=== PATIENT | female | born 1930 | race Caucasian/White ===

== ENCOUNTER 2018-04-11 20:25 | Inpatient (IN) | payer MEDICARE, OTHER ==
[2018-04-11] MEDS ORDERED: DEXTROSE 50% 50 ML SYRINGE IV ×4 (22:30→23:30)
[2018-04-11] MEDS: ACCU-CHEK XX (23:09)
[2018-04-11] MEDS: INSULIN HUMAN REGULAR 100 UNIT in SOD CHLORIDE 0.9% 99 ML IV (23:09)
[2018-04-11] MEDS ORDERED: ACCU-CHEK XX (23:30)
[2018-04-11] MEDS ORDERED: NACL 0.9% 3 ML SYG IV (23:30)
[2018-04-11] MEDS ORDERED: INSULIN HUMAN REGULAR 100 UNIT in SOD CHLORIDE 0.9% 99 ML IV (23:30)
[2018-04-12] MEDS: ACCU-CHEK XX ×24 (00:20→23:00)
[2018-04-12] MEDS: VANCOMYCIN HCL 250 MG/5ML POSYG PO ×4 (01:29→17:52)
[2018-04-12] MEDS: ALBUTEROL HFA 8 GM INHALER INH ×6 (01:31→20:26)
[2018-04-12] MEDS: IPRATROPIUM (HFA) 12.9 GM INHALER INH ×6 (01:31→20:26)
[2018-04-12 02:03] LABS: POTASSIUM 3.7 mmol/L (3.5-5.1)
[2018-04-12 02:07] LABS: LACTIC ACID 1.3 mmol/L (0.5-2.0)
[2018-04-12] MEDS: DOXAZOSIN 4 MG TAB GTB ×2 (02:41→21:36)
[2018-04-12] MEDS: ACETAMINOPHEN 650MG/20.3ML CUP GTB ×2 (04:20→17:52)
[2018-04-12 04:51] LABS: ADD MAN DIFF? NO
[2018-04-12 04:59] LABS: WHITE BLOOD COUNT 10.8 10^3/ul (4.8-10.8)
[2018-04-12 04:59] LABS: ABNORMAL IP MESSAGE 1; BASOPHILS % 0.2 % (0.0-2.0); EOSINOPHILS # 0.5 10^3/ul (0.0-0.5); EOSINOPHILS % 4.4 % (0.0-7.0); HEMATOCRIT 19.2 % (37.0-47.0); LYMPHOCYTES # 1.7 10^3/ul (0.8-2.9); LYMPHOCYTES % 15.5 % (15.0-51.0); MEAN CORPUSCULAR HEMOGLOBIN 28.4 pg (29.0-33.0); MEAN CORPUSCULAR HGB CONC 32.3 g/dl (32.0-37.0); MEAN CORPUSCULAR VOLUME 88.1 fl (82.0-101.0); MEAN PLATELET VOLUME 10.2 fl (7.4-10.4); MONOCYTE # 1.1 10^3/ul (0.3-0.9); MONOCYTES % 10.2 % (0.0-11.0); NEUTROPHIL # 7.4 10^3/ul (1.6-7.5); NEUTROPHILS % 68.7 % (39.0-77.0); PLATELET COUNT 251 10^3/UL (140-415); RED BLOOD COUNT 2.18 10^6/ul (4.20-5.40)
[2018-04-12 05:08] LABS: AADO2 Arterial 76.8 mmHg (7.0-24.0); Allen Test ACCEPTAB; Arterial Base Excess -0.7 mmol/L (-3.0-3); Arterial Blood Gas Oxygen Sat 97.5 mmHG (95.0-100.0); Arterial COHb 0.7 % (0.0-3.0); Arterial Fraction of Oxyhgb 96.2 % (93.0-99.0); Arterial HCO3 22.2 mmol/L (22.0-26.0); Arterial MetHb 0.6 % (0.0-1.5); Arterial pCO2 29.1 mmhg (35-45); MODE VENT - AC; Site Left Radial
[2018-04-12 05:30] LABS: ANION GAP 13 (5-13); BLOOD UREA NITROGEN 37 mg/dl (7-20); CARBON DIOXIDE 25 mmol/L (21-31); CHLORIDE 97 mmol/L (97-110); GLUCOSE 124 mg/dl (70-220); MAGNESIUM 2.1 mg/dl (1.7-2.5); PHOSPHORUS 2.8 mg/dl (2.5-4.9); POTASSIUM 3.6 mmol/L (3.5-5.1); SODIUM 135 mmol/L (135-144)
[2018-04-12 05:35] LABS: HEMOGLOBIN 6.2 g/dl (12.0-16.0); POSITIVE DIFF @See below
[2018-04-12] MEDS: PANTOPRAZOLE 40 MG INJ IV (06:33)
[2018-04-12 07:26] LABS: ANISOCYTOSIS 1+ (0-0); BAND NEUTROPHILS #M 0.1 10^3/ul (0.0-0.6); BAND NEUTROPHILS % (M) 1 % (0-4); BASOPHIL #M 0.1 10^3/ul (0.0-0.0); BASOPHILS % (M) 1 % (0-2); EOSINOPHILS % (M) 6 % (0-7); GIANT THROMBO% (M) 1 % (0-0); LYMPHOCYTES #M 1.5 10^3/ul (0.8-2.9); LYMPHOCYTES % (M) 14 % (15-51); MONOCYTE #M 0.7 10^3/ul (0.3-0.9); MONOCYTES % (M) 7 % (0-11); PLATELET ESTIMATE NORMAL; POIKILOCYTOSIS 1+ (0-0); POLYCHROMASIA 1+ (0-0); SEG NEUT #M 7.7 10^3/ul (1.6-7.5); SEGMENTED NEUTROPHILS (M) % 71 % (39-77); SMUDGE%M 10 % (0-0); TARGET CELLS 1+ (0-0)
[2018-04-12 08:39] LABS: IMMEDIATE SPIN CROSSMATCH 1 2
[2018-04-12] MEDS: METOPROLOL 25 MG TAB GTB (08:51)
[2018-04-12] MEDS: AMLODIPINE 5 MG TAB GTB (08:51)
[2018-04-12] MEDS ORDERED: METOPROLOL (XL) 25 MG TAB PO (09:00)
[2018-04-12 13:04] LABS: ADD MAN DIFF? NO
[2018-04-12 13:06] LABS: BASOPHILS % 0.3 % (0.0-2.0); EOSINOPHILS # 0.6 10^3/ul (0.0-0.5); EOSINOPHILS % 5.1 % (0.0-7.0); HEMATOCRIT 26.9 % (37.0-47.0); HEMOGLOBIN 8.9 g/dl (12.0-16.0); LYMPHOCYTES # 1.5 10^3/ul (0.8-2.9); LYMPHOCYTES % 12.9 % (15.0-51.0); MEAN CORPUSCULAR HEMOGLOBIN 29.2 pg (29.0-33.0); MEAN CORPUSCULAR HGB CONC 33.1 g/dl (32.0-37.0); MEAN CORPUSCULAR VOLUME 88.2 fl (82.0-101.0); MEAN PLATELET VOLUME 10.1 fl (7.4-10.4); MONOCYTES % 8.5 % (0.0-11.0); NEUTROPHIL # 8.4 10^3/ul (1.6-7.5); NEUTROPHILS % 71.9 % (39.0-77.0); PLATELET COUNT 254 10^3/UL (140-415); RED BLOOD COUNT 3.05 10^6/ul (4.20-5.40)
[2018-04-12 13:06] LABS: WHITE BLOOD COUNT 11.7 10^3/ul (4.8-10.8)
[2018-04-12] MEDS: AMLODIPINE 5 MG TAB PO (15:58)
[2018-04-12 16:31] LABS: INR 1.15; PROTIME 14.9 Sec (11.9-14.9); PT RATIO 1.2
[2018-04-12 16:32] LABS: ANION GAP 10 (5-13); BLOOD UREA NITROGEN 42 mg/dl (7-20); CARBON DIOXIDE 25 mmol/L (21-31); CHLORIDE 96 mmol/L (97-110); CREATININE 3.24 mg/dl (0.44-1.00); GLUCOSE 120 mg/dl (70-220); PARTIAL THROMBOPLASTIN TIME 48.7 Sec (23.0-35.0); POTASSIUM 3.5 mmol/L (3.5-5.1); SODIUM 131 mmol/L (135-144)
[2018-04-12 18:27] LABS: AADO2 Arterial 76.8 mmHg (7.0-24.0); Allen Test ACCEPTAB; Arterial Base Excess -0.7 mmol/L (-3.0-3); Arterial Blood Gas Oxygen Sat 97.5 mmHG (95.0-100.0); Arterial COHb 0.7 % (0.0-3.0); Arterial Fraction of Oxyhgb 96.2 % (93.0-99.0); Arterial HCO3 22.2 mmol/L (22.0-26.0); Arterial MetHb 0.6 % (0.0-1.5); Arterial pCO2 29.1 mmhg (35-45); MODE VENT - AC; Site Left Radial
[2018-04-12 18:29] LABS: ADD MAN DIFF? NO
[2018-04-12 18:30] LABS: BASOPHILS % 0.2 % (0.0-2.0); EOSINOPHILS # 0.5 10^3/ul (0.0-0.5); EOSINOPHILS % 4.8 % (0.0-7.0); HEMATOCRIT 25.7 % (37.0-47.0); HEMOGLOBIN 8.6 g/dl (12.0-16.0); LYMPHOCYTES # 1.5 10^3/ul (0.8-2.9); LYMPHOCYTES % 13.1 % (15.0-51.0); MEAN CORPUSCULAR HGB CONC 33.5 g/dl (32.0-37.0); MEAN CORPUSCULAR VOLUME 86.5 fl (82.0-101.0); MEAN PLATELET VOLUME 10.4 fl (7.4-10.4); MONOCYTES % 9.2 % (0.0-11.0); NEUTROPHILS % 71.4 % (39.0-77.0); PLATELET COUNT 262 10^3/UL (140-415); RED BLOOD COUNT 2.97 10^6/ul (4.20-5.40); RED CELL DISTRIBUTION WIDTH 16.7 % (11.5-14.5)
[2018-04-12 18:30] LABS: WHITE BLOOD COUNT 11.2 10^3/ul (4.8-10.8)
[2018-04-13] MEDS: IPRATROPIUM (HFA) 12.9 GM INHALER INH ×6 (01:00→20:22)
[2018-04-13] MEDS: ALBUTEROL HFA 8 GM INHALER INH ×6 (01:00→20:22)
[2018-04-13] MEDS: ACCU-CHEK XX ×13 (01:00→21:33)
[2018-04-13] MEDS: VANCOMYCIN HCL 250 MG/5ML POSYG PO ×4 (01:03→17:26)
[2018-04-13 05:05] LABS: ADD MAN DIFF? NO
[2018-04-13 05:07] LABS: WHITE BLOOD COUNT 11.3 10^3/ul (4.8-10.8)
[2018-04-13 05:07] LABS: BASOPHILS % 0.4 % (0.0-2.0); EOSINOPHILS # 0.6 10^3/ul (0.0-0.5); EOSINOPHILS % 5.4 % (0.0-7.0); HEMATOCRIT 26.9 % (37.0-47.0); HEMOGLOBIN 8.7 g/dl (12.0-16.0); LYMPHOCYTES # 2.1 10^3/ul (0.8-2.9); LYMPHOCYTES % 18.4 % (15.0-51.0); MEAN CORPUSCULAR HEMOGLOBIN 28.2 pg (29.0-33.0); MEAN CORPUSCULAR HGB CONC 32.3 g/dl (32.0-37.0); MEAN CORPUSCULAR VOLUME 87.3 fl (82.0-101.0); MEAN PLATELET VOLUME 10.3 fl (7.4-10.4); MONOCYTE # 1.1 10^3/ul (0.3-0.9); MONOCYTES % 9.6 % (0.0-11.0); NEUTROPHIL # 7.3 10^3/ul (1.6-7.5); NEUTROPHILS % 64.7 % (39.0-77.0); NUCLEATED RED BLOOD CELLS% 0.2 /100WBC (0.0-0.0); PLATELET COUNT 303 10^3/UL (140-415); RED BLOOD COUNT 3.08 10^6/ul (4.20-5.40)
[2018-04-13] MEDS: PANTOPRAZOLE 40 MG INJ IV (05:37)
[2018-04-13 05:45] LABS: ANION GAP 11 (5-13); BLOOD UREA NITROGEN 44 mg/dl (7-20); CALCIUM 9.2 mg/dl (8.4-10.2); CARBON DIOXIDE 26 mmol/L (21-31); CHLORIDE 97 mmol/L (97-110); CREATININE 3.51 mg/dl (0.44-1.00); GLUCOSE 119 mg/dl (70-220); MAGNESIUM 2.1 mg/dl (1.7-2.5); PHOSPHORUS 2.6 mg/dl (2.5-4.9); POTASSIUM 3.7 mmol/L (3.5-5.1); SODIUM 134 mmol/L (135-144)
[2018-04-13] MEDS: METOPROLOL 25 MG TAB GTB ×2 (08:28→21:22)
[2018-04-13] MEDS: AMLODIPINE 10 MG TAB GTB (08:29)
[2018-04-13] MEDS: ACETAMINOPHEN 650MG/20.3ML CUP GTB ×2 (08:44→21:23)
[2018-04-13 08:49] LABS: HEPATITIS B SURFACE ANTIGEN NEGATIVE (NEGATIVE)
[2018-04-13 09:07] LABS: HEPATITIS B SURFACE ANTIBODY NEGATIVE (NEGATIVE)
[2018-04-13] MEDS: RIFAXIMIN 550 MG TAB PO ×2 (09:38→21:23)
[2018-04-13] MEDS: TOBRAMYCIN 0.3% 5 ML OPH BOTH EYES ×4 (09:38→21:24)
[2018-04-13] MEDS: INSULIN ASPART [NOVOLOG] 3 ML PEN SC ×2 (11:11→17:28)
[2018-04-13] MEDS: HEPARIN 1000 UNITS/ML 10 ML INJ CATHETER (11:42)
[2018-04-13] MEDS: NPH, HUMAN INSULIN ISOPHANE 3ML VIAL SC ×2 (14:04→21:33)
[2018-04-13] MEDS: EPOETIN 10000 UNITS/1 ML INJ (ESRD) SC (17:27)
[2018-04-13] MEDS: DOXAZOSIN 4 MG TAB GTB (21:23)
[2018-04-14] MEDS: VANCOMYCIN HCL 250 MG/5ML POSYG PO ×4 (00:18→18:00)
[2018-04-14] MEDS: IPRATROPIUM (HFA) 12.9 GM INHALER INH ×6 (01:07→21:15)
[2018-04-14] MEDS: ALBUTEROL HFA 8 GM INHALER INH ×6 (01:07→21:15)
[2018-04-14] MEDS: ACCU-CHEK XX ×6 (01:26→21:50)
[2018-04-14 05:14] LABS: ADD MAN DIFF? NO
[2018-04-14 05:16] LABS: WHITE BLOOD COUNT 9.9 10^3/ul (4.8-10.8)
[2018-04-14 05:16] LABS: BASOPHILS % 0.3 % (0.0-2.0); EOSINOPHILS # 0.5 10^3/ul (0.0-0.5); EOSINOPHILS % 4.7 % (0.0-7.0); HEMATOCRIT 25.5 % (37.0-47.0); HEMOGLOBIN 8.4 g/dl (12.0-16.0); LYMPHOCYTES # 1.7 10^3/ul (0.8-2.9); LYMPHOCYTES % 17.3 % (15.0-51.0); MEAN CORPUSCULAR HEMOGLOBIN 29.1 pg (29.0-33.0); MEAN CORPUSCULAR HGB CONC 32.9 g/dl (32.0-37.0); MEAN CORPUSCULAR VOLUME 88.2 fl (82.0-101.0); MEAN PLATELET VOLUME 9.9 fl (7.4-10.4); MONOCYTE # 1.2 10^3/ul (0.3-0.9); MONOCYTES % 12.5 % (0.0-11.0); NEUTROPHIL # 6.3 10^3/ul (1.6-7.5); NEUTROPHILS % 63.5 % (39.0-77.0); PLATELET COUNT 298 10^3/UL (140-415); RED BLOOD COUNT 2.89 10^6/ul (4.20-5.40); RED CELL DISTRIBUTION WIDTH 17.4 % (11.5-14.5)
[2018-04-14 05:50] LABS: ALANINE AMINOTRANSFERASE 51 IU/L (13-69); ALBUMIN 3.2 g/dl (3.3-4.9); ALBUMIN/GLOBULIN RATIO 1.45; ALKALINE PHOSPHATASE 74 IU/L (42-121); ANION GAP 7 (5-13); ASPARTATE AMINO TRANSFERASE 80 IU/L (15-46); BILIRUBIN,INDIRECT 0.7 mg/dl (0-1.1); BILIRUBIN,TOTAL 0.7 mg/dl (0.2-1.3); BLOOD UREA NITROGEN 29 mg/dl (7-20); CALCIUM 8.9 mg/dl (8.4-10.2); CARBON DIOXIDE 29 mmol/L (21-31); CHLORIDE 101 mmol/L (97-110); CREATININE 2.53 mg/dl (0.44-1.00); GLUCOSE 150 mg/dl (70-220); POTASSIUM 3.5 mmol/L (3.5-5.1); SODIUM 137 mmol/L (135-144); TOTAL PROTEIN 5.4 g/dl (6.1-8.1)
[2018-04-14] MEDS: PANTOPRAZOLE 40 MG INJ IV (06:18)
[2018-04-14] MEDS: NPH, HUMAN INSULIN ISOPHANE 3ML VIAL SC ×3 (06:23→21:48)
[2018-04-14] MEDS: TOBRAMYCIN 0.3% 5 ML OPH BOTH EYES ×4 (08:41→21:11)
[2018-04-14] MEDS: INSULIN ASPART [NOVOLOG] 3 ML PEN SC ×3 (08:41→18:04)
[2018-04-14] MEDS: METOPROLOL 25 MG TAB GTB ×2 (08:42→21:10)
[2018-04-14] MEDS: AMLODIPINE 10 MG TAB GTB (08:42)
[2018-04-14] MEDS: RIFAXIMIN 550 MG TAB PO ×2 (08:42→21:10)
[2018-04-14] MEDS: SODIUM PHOSPHATE 15 MMOL in SOD CHLORIDE 0.9% 250 ML IVPB (09:34)
[2018-04-14 10:29] LABS: ADD UMIC YES; UR ASCORBIC ACID NEGATIVE (NEGATIVE); UR BACTERIA FEW /HPF (NONE SEEN); UR BILIRUBIN (Dip) NEGATIVE (NEGATIVE); UR BLOOD (Dip) 3+ mg/dL (NEGATIVE); UR BUDDING YEAST MANY /HPF (NONE SEEN); UR CLARITY TURBID (CLEAR); UR COLOR YELLOW (YELLOW); UR GLUCOSE (Dip) NEGATIVE (NEGATIVE); UR HYALINE CAST FEW /HPF (NONE SEEN); UR KETONES (Dip) NEGATIVE (NEGATIVE); UR LEUKOCYTE ESTERASE (Dip) 2+ Leu/ul (NEGATIVE); UR MUCUS FEW /HPF (NONE SEEN); UR NITRITE (Dip) NEGATIVE (NEGATIVE); UR RBC > 182 /HPF (0-5); UR SPECIFIC GRAVITY (Dip) 1.026 (1.003-1.030); UR SQUAMOUS EPITHELIAL CELL FEW /HPF (FEW); UR TOTAL PROTEIN (Dip) 2+ mg/dl (NEGATIVE); UR UROBILINOGEN (Dip) NEGATIVE (NEGATIVE); UR WBC > 182 /HPF (0-5)
[2018-04-14 11:28] LABS: CREATININE,URINE RANDOM 297.18 mg/dl (20-320); PROTEIN/CREAT RATIO 0.59 RATIO
[2018-04-14] MEDS ORDERED: FLUCONAZOLE (10 MG/ML PO SYG) PEG (16:30)
[2018-04-14] MEDS: FLUCONAZOLE 200 MG TAB PEG (16:42)
[2018-04-14] MEDS: HEPARIN 1000 UNITS/ML 10 ML INJ CATHETER (17:58)
[2018-04-14] MEDS: DOXAZOSIN 4 MG TAB GTB (21:10)
[2018-04-14] MEDS: ACETYLCYSTEINE 600 MG CAP PEG (21:11)
[2018-04-15] MEDS: ACCU-CHEK XX ×6 (01:16→20:53)
[2018-04-15] MEDS: VANCOMYCIN HCL 250 MG/5ML POSYG PO ×5 (01:17→18:00)
[2018-04-15] MEDS: ACETAMINOPHEN 650MG/20.3ML CUP GTB (01:18)
[2018-04-15] MEDS: IPRATROPIUM (HFA) 12.9 GM INHALER INH ×6 (02:10→21:36)
[2018-04-15] MEDS: ALBUTEROL HFA 8 GM INHALER INH ×6 (02:10→21:36)
[2018-04-15 05:20] LABS: ADD MAN DIFF? NO; BASOPHIL # 0.1 10^3/ul (0.0-0.1); BASOPHILS % 0.5 % (0.0-2.0); EOSINOPHILS # 0.6 10^3/ul (0.0-0.5); EOSINOPHILS % 6.2 % (0.0-7.0); HEMATOCRIT 25.1 % (37.0-47.0); HEMOGLOBIN 8.2 g/dl (12.0-16.0); LYMPHOCYTES # 1.9 10^3/ul (0.8-2.9); LYMPHOCYTES % 20.4 % (15.0-51.0); MEAN CORPUSCULAR HEMOGLOBIN 28.9 pg (29.0-33.0); MEAN CORPUSCULAR HGB CONC 32.7 g/dl (32.0-37.0); MEAN CORPUSCULAR VOLUME 88.4 fl (82.0-101.0); MEAN PLATELET VOLUME 9.7 fl (7.4-10.4); MONOCYTE # 1.1 10^3/ul (0.3-0.9); MONOCYTES % 12.2 % (0.0-11.0); NEUTROPHIL # 5.4 10^3/ul (1.6-7.5); NEUTROPHILS % 59.3 % (39.0-77.0); NUCLEATED RED BLOOD CELLS% 0.2 /100WBC (0.0-0.0); PLATELET COUNT 308 10^3/UL (140-415); RED BLOOD COUNT 2.84 10^6/ul (4.20-5.40); RED CELL DISTRIBUTION WIDTH 18.1 % (11.5-14.5)
[2018-04-15 05:20] LABS: WHITE BLOOD COUNT 9.2 10^3/ul (4.8-10.8)
[2018-04-15] MEDS: PANTOPRAZOLE 40 MG INJ IV (05:49)
[2018-04-15] MEDS: NPH, HUMAN INSULIN ISOPHANE 3ML VIAL SC ×3 (05:53→23:14)
[2018-04-15 05:59] LABS: ANION GAP 8 (5-13); BLOOD UREA NITROGEN 17 mg/dl (7-20); CALCIUM 8.6 mg/dl (8.4-10.2); CARBON DIOXIDE 30 mmol/L (21-31); CHLORIDE 100 mmol/L (97-110); CREATININE 1.95 mg/dl (0.44-1.00); GLUCOSE 181 mg/dl (70-220); PHOSPHORUS 1.9 mg/dl (2.5-4.9); POTASSIUM 3.3 mmol/L (3.5-5.1); SODIUM 138 mmol/L (135-144)
[2018-04-15 07:29] LABS: AADO2 Arterial 87.9 mmHg (7.0-24.0); Allen Test ACCEPTAB; Arterial Base Excess 0.8 mmol/L (-3.0-3); Arterial Blood Gas Oxygen Sat 96.8 mmHG (95.0-100.0); Arterial COHb 0.3 % (0.0-3.0); Arterial Fraction of Oxyhgb 96.4 % (93.0-99.0); Arterial HCO3 24.4 mmol/L (22.0-26.0); Arterial MetHb 0.1 % (0.0-1.5); Arterial Total Hemglobin 9.8 g/dl (12.0-18.0); Arterial pCO2 35.3 mmhg (35-45); MODE VENT - AC; Site Right Radial
[2018-04-15] MEDS: FLUCONAZOLE 200 MG TAB PEG (08:42)
[2018-04-15] MEDS: TOBRAMYCIN 0.3% 5 ML OPH BOTH EYES ×4 (08:42→20:51)
[2018-04-15] MEDS: METOPROLOL 25 MG TAB GTB ×2 (08:43→20:54)
[2018-04-15] MEDS: RIFAXIMIN 550 MG TAB PO ×2 (08:43→20:53)
[2018-04-15] MEDS: ACETYLCYSTEINE 600 MG CAP PEG ×2 (08:44→20:52)
[2018-04-15] MEDS: CHOLESTYRAMINE 4 GM PACKET PO ×2 (08:44→20:51)
[2018-04-15] MEDS: AMLODIPINE 10 MG TAB GTB (08:44)
[2018-04-15] MEDS: INSULIN ASPART [NOVOLOG] 3 ML PEN SC ×3 (08:45→17:18)
[2018-04-15] MEDS: POTASSIUM PHOSPHATE 20 MEQ in SOD CHLORIDE 0.9% 250 ML IVPB (11:00)
[2018-04-15] MEDS ORDERED: ALBUMIN HUMAN 25% 100 ML IV (16:00)
[2018-04-15] MEDS: EPOETIN 10000 UNITS/1 ML INJ (ESRD) SC (17:17)
[2018-04-15] MEDS: DOXAZOSIN 4 MG TAB GTB (20:53)
[2018-04-15] MEDS: HEPARIN 1000 UNITS/ML 10 ML INJ CATHETER (20:55)
[2018-04-16] MEDS: VANCOMYCIN HCL 250 MG/5ML POSYG PO ×5 (00:29→23:49)
[2018-04-16] MEDS: ACCU-CHEK XX ×2 (01:19→05:33)
[2018-04-16] MEDS: IPRATROPIUM (HFA) 12.9 GM INHALER INH ×6 (01:56→21:32)
[2018-04-16] MEDS: ALBUTEROL HFA 8 GM INHALER INH ×6 (01:56→21:32)
[2018-04-16] MEDS: PANTOPRAZOLE 40 MG INJ IV (05:33)
[2018-04-16] MEDS: NPH, HUMAN INSULIN ISOPHANE 3ML VIAL SC ×3 (05:33→22:04)
[2018-04-16 05:48] LABS: ADD MAN DIFF? NO
[2018-04-16 05:58] LABS: BASOPHIL # 0.1 10^3/ul (0.0-0.1); BASOPHILS % 0.5 % (0.0-2.0); EOSINOPHILS # 0.9 10^3/ul (0.0-0.5); EOSINOPHILS % 8.4 % (0.0-7.0); HEMATOCRIT 28.2 % (37.0-47.0); HEMOGLOBIN 8.8 g/dl (12.0-16.0); LYMPHOCYTES # 2.5 10^3/ul (0.8-2.9); LYMPHOCYTES % 22.1 % (15.0-51.0); MEAN CORPUSCULAR HGB CONC 31.2 g/dl (32.0-37.0); MEAN CORPUSCULAR VOLUME 89.8 fl (82.0-101.0); MEAN PLATELET VOLUME 9.8 fl (7.4-10.4); MONOCYTE # 1.4 10^3/ul (0.3-0.9); MONOCYTES % 12.2 % (0.0-11.0); NEUTROPHIL # 6.1 10^3/ul (1.6-7.5); NUCLEATED RED BLOOD CELLS% 0.2 /100WBC (0.0-0.0); PLATELET COUNT 309 10^3/UL (140-415); RED BLOOD COUNT 3.14 10^6/ul (4.20-5.40); RED CELL DISTRIBUTION WIDTH 18.4 % (11.5-14.5)
[2018-04-16 05:58] LABS: WHITE BLOOD COUNT 11.1 10^3/ul (4.8-10.8)
[2018-04-16 06:20] LABS: ALANINE AMINOTRANSFERASE 44 IU/L (13-69); ALBUMIN 3.6 g/dl (3.3-4.9); ALBUMIN/GLOBULIN RATIO 1.28; ALKALINE PHOSPHATASE 82 IU/L (42-121); ANION GAP 11 (5-13); ASPARTATE AMINO TRANSFERASE 58 IU/L (15-46); BILIRUBIN,INDIRECT 0.5 mg/dl (0-1.1); BILIRUBIN,TOTAL 0.5 mg/dl (0.2-1.3); BLOOD UREA NITROGEN 13 mg/dl (7-20); CALCIUM 9.1 mg/dl (8.4-10.2); CARBON DIOXIDE 29 mmol/L (21-31); CHLORIDE 100 mmol/L (97-110); CREATININE 1.83 mg/dl (0.44-1.00); GLUCOSE 146 mg/dl (70-220); POTASSIUM 3.7 mmol/L (3.5-5.1); SODIUM 140 mmol/L (135-144); TOTAL PROTEIN 6.4 g/dl (6.1-8.1)
[2018-04-16] MEDS: INSULIN ASPART [NOVOLOG] 3 ML PEN SC ×7 (07:35→23:53)
[2018-04-16] MEDS: ACETYLCYSTEINE 600 MG CAP PEG ×2 (10:43→21:47)
[2018-04-16] MEDS: RIFAXIMIN 550 MG TAB PO ×2 (10:44→21:47)
[2018-04-16] MEDS: METOPROLOL 25 MG TAB GTB ×2 (10:44→21:48)
[2018-04-16] MEDS: AMLODIPINE 10 MG TAB GTB (10:44)
[2018-04-16] MEDS: FLUCONAZOLE 200 MG TAB PEG (10:44)
[2018-04-16] MEDS: POTASSIUM CHLORIDE 50 ML IVPB (10:45)
[2018-04-16] MEDS: TOBRAMYCIN 0.3% 5 ML OPH BOTH EYES ×4 (10:45→21:48)
[2018-04-16 12:42] LABS: ADD UMIC YES; UR ASCORBIC ACID NEGATIVE (NEGATIVE); UR BACTERIA FEW /HPF (NONE SEEN); UR BILIRUBIN (Dip) 1+ mg/dL (NEGATIVE); UR BLOOD (Dip) 3+ mg/dL (NEGATIVE); UR BUDDING YEAST MANY /HPF (NONE SEEN); UR CLARITY TURBID (CLEAR); UR COLOR AMBER (YELLOW); UR GLUCOSE (Dip) NEGATIVE (NEGATIVE); UR HYALINE CAST FEW /HPF (NONE SEEN); UR KETONES (Dip) NEGATIVE (NEGATIVE); UR LEUKOCYTE ESTERASE (Dip) 3+ Leu/ul (NEGATIVE); UR MUCUS FEW /HPF (NONE SEEN); UR NITRITE (Dip) NEGATIVE (NEGATIVE); UR RBC > 182 /HPF (0-5); UR SPECIFIC GRAVITY (Dip) 1.024 (1.003-1.030); UR SQUAMOUS EPITHELIAL CELL FEW /HPF (FEW); UR TOTAL PROTEIN (Dip) 3+ mg/dl (NEGATIVE); UR UROBILINOGEN (Dip) NEGATIVE (NEGATIVE); UR WBC > 182 /HPF (0-5)
[2018-04-16] MEDS: CHOLESTYRAMINE 4 GM PACKET PO ×2 (12:54→23:44)
[2018-04-16] MEDS: BUMETANIDE 12 MG in DEXTROSE 5% 72 ML IV (12:54)
[2018-04-16] MEDS: CASPOFUNGIN 50 MG in SOD CHLORIDE 0.9% 250 ML IVPB (16:58)
[2018-04-16 17:19] LABS: HEPATITIS C VIRAL ANTIBODY NEGATIVE (NEGATIVE)
[2018-04-16] MEDS: DOXAZOSIN 4 MG TAB GTB (21:47)
[2018-04-17] MEDS: ACETAMINOPHEN 650MG/20.3ML CUP GTB ×2 (01:09→21:45)
[2018-04-17] MEDS: IPRATROPIUM (HFA) 12.9 GM INHALER INH ×6 (01:16→20:40)
[2018-04-17] MEDS: ALBUTEROL HFA 8 GM INHALER INH ×6 (01:17→20:41)
[2018-04-17 05:01] LABS: ADD MAN DIFF? NO
[2018-04-17 05:12] LABS: WHITE BLOOD COUNT 11.9 10^3/ul (4.8-10.8)
[2018-04-17 05:12] LABS: BASOPHIL # 0.1 10^3/ul (0.0-0.1); BASOPHILS % 0.4 % (0.0-2.0); EOSINOPHILS # 1.3 10^3/ul (0.0-0.5); EOSINOPHILS % 10.5 % (0.0-7.0); HEMOGLOBIN 8.4 g/dl (12.0-16.0); LYMPHOCYTES # 2.4 10^3/ul (0.8-2.9); LYMPHOCYTES % 20.3 % (15.0-51.0); MEAN CORPUSCULAR HEMOGLOBIN 28.2 pg (29.0-33.0); MEAN CORPUSCULAR HGB CONC 31.1 g/dl (32.0-37.0); MEAN CORPUSCULAR VOLUME 90.6 fl (82.0-101.0); MEAN PLATELET VOLUME 9.3 fl (7.4-10.4); MONOCYTE # 1.1 10^3/ul (0.3-0.9); MONOCYTES % 9.5 % (0.0-11.0); NEUTROPHIL # 6.9 10^3/ul (1.6-7.5); NEUTROPHILS % 57.7 % (39.0-77.0); NUCLEATED RED BLOOD CELLS% 0.3 /100WBC (0.0-0.0); PLATELET COUNT 368 10^3/UL (140-415); RED BLOOD COUNT 2.98 10^6/ul (4.20-5.40); RED CELL DISTRIBUTION WIDTH 18.4 % (11.5-14.5)
[2018-04-17 05:27] LABS: ANION GAP 11 (5-13); BLOOD UREA NITROGEN 21 mg/dl (7-20); CALCIUM 9.4 mg/dl (8.4-10.2); CARBON DIOXIDE 25 mmol/L (21-31); CHLORIDE 102 mmol/L (97-110); GLUCOSE 144 mg/dl (70-220); PHOSPHORUS 2.1 mg/dl (2.5-4.9); POTASSIUM 3.3 mmol/L (3.5-5.1); SODIUM 138 mmol/L (135-144)
[2018-04-17] MEDS: PANTOPRAZOLE 40 MG INJ IV (05:54)
[2018-04-17] MEDS: VANCOMYCIN HCL 250 MG/5ML POSYG PO ×3 (05:54→17:06)
[2018-04-17] MEDS: NPH, HUMAN INSULIN ISOPHANE 3ML VIAL SC ×3 (06:11→22:06)
[2018-04-17] MEDS: INSULIN ASPART [NOVOLOG] 3 ML PEN SC ×6 (06:12→17:07)
[2018-04-17] MEDS: TOBRAMYCIN 0.3% 5 ML OPH BOTH EYES ×4 (13:00→21:46)
[2018-04-17] MEDS: HEPARIN 1000 UNITS/ML 10 ML INJ CATHETER (13:50)
[2018-04-17] MEDS: POTASSIUM PHOSPHATE 30 MM in SOD CHLORIDE 0.9% 250 ML IVPB (14:09)
[2018-04-17] MEDS: AMLODIPINE 10 MG TAB GTB (14:09)
[2018-04-17] MEDS: ACETYLCYSTEINE 600 MG CAP PEG ×2 (14:11→21:45)
[2018-04-17] MEDS: METOPROLOL 25 MG TAB GTB ×2 (14:11→21:46)
[2018-04-17] MEDS: RIFAXIMIN 550 MG TAB PO ×2 (14:12→21:45)
[2018-04-17] MEDS: CASPOFUNGIN 50 MG in SOD CHLORIDE 0.9% 250 ML IVPB (17:04)
[2018-04-17] MEDS: CHOLESTYRAMINE 4 GM PACKET PO (17:04)
[2018-04-17] MEDS: EPOETIN 10000 UNITS/1 ML INJ (ESRD) SC (17:06)
[2018-04-17] MEDS: DOXAZOSIN 4 MG TAB GTB (21:46)
[2018-04-18] MEDS: VANCOMYCIN HCL 250 MG/5ML POSYG PO ×5 (00:14→23:43)
[2018-04-18] MEDS: CHOLESTYRAMINE 4 GM PACKET PO ×2 (00:14→12:47)
[2018-04-18] MEDS: INSULIN ASPART [NOVOLOG] 3 ML PEN SC ×10 (00:20→23:50)
[2018-04-18] MEDS: IPRATROPIUM (HFA) 12.9 GM INHALER INH ×6 (01:16→21:16)
[2018-04-18] MEDS: ALBUTEROL HFA 8 GM INHALER INH ×6 (01:16→21:16)
[2018-04-18 04:53] LABS: ADD MAN DIFF? NO
[2018-04-18 04:55] LABS: BASOPHIL # 0.1 10^3/ul (0.0-0.1); BASOPHILS % 0.4 % (0.0-2.0); EOSINOPHILS # 1.4 10^3/ul (0.0-0.5); EOSINOPHILS % 12.2 % (0.0-7.0); HEMATOCRIT 27.5 % (37.0-47.0); HEMOGLOBIN 8.5 g/dl (12.0-16.0); LYMPHOCYTES # 2.2 10^3/ul (0.8-2.9); LYMPHOCYTES % 18.7 % (15.0-51.0); MEAN CORPUSCULAR HGB CONC 30.9 g/dl (32.0-37.0); MEAN CORPUSCULAR VOLUME 90.5 fl (82.0-101.0); MEAN PLATELET VOLUME 9.5 fl (7.4-10.4); MONOCYTE # 1.3 10^3/ul (0.3-0.9); NEUTROPHIL # 6.5 10^3/ul (1.6-7.5); NEUTROPHILS % 55.6 % (39.0-77.0); NUCLEATED RED BLOOD CELLS% 0.3 /100WBC (0.0-0.0); PLATELET COUNT 309 10^3/UL (140-415); RED BLOOD COUNT 3.04 10^6/ul (4.20-5.40); RED CELL DISTRIBUTION WIDTH 18.4 % (11.5-14.5)
[2018-04-18 04:55] LABS: WHITE BLOOD COUNT 11.7 10^3/ul (4.8-10.8)
[2018-04-18 05:32] LABS: ANION GAP 13 (5-13); BLOOD UREA NITROGEN 15 mg/dl (7-20); CALCIUM 9.2 mg/dl (8.4-10.2); CARBON DIOXIDE 25 mmol/L (21-31); CHLORIDE 101 mmol/L (97-110); CREATININE 2.11 mg/dl (0.44-1.00); GLUCOSE 85 mg/dl (70-220); MAGNESIUM 1.9 mg/dl (1.7-2.5); PHOSPHORUS 3.6 mg/dl (2.5-4.9); POTASSIUM 3.6 mmol/L (3.5-5.1); SODIUM 139 mmol/L (135-144)
[2018-04-18] MEDS: PANTOPRAZOLE 40 MG INJ IV (05:53)
[2018-04-18] MEDS: NPH, HUMAN INSULIN ISOPHANE 3ML VIAL SC ×3 (05:56→21:29)
[2018-04-18] MEDS: AMLODIPINE 10 MG TAB GTB (09:45)
[2018-04-18] MEDS: METOPROLOL 25 MG TAB GTB ×2 (09:45→21:23)
[2018-04-18] MEDS: TOBRAMYCIN 0.3% 5 ML OPH BOTH EYES ×4 (09:46→21:32)
[2018-04-18] MEDS: RIFAXIMIN 550 MG TAB PO ×2 (09:46→21:22)
[2018-04-18] MEDS: ACETYLCYSTEINE 600 MG CAP PEG ×2 (09:46→21:22)
[2018-04-18 10:23] LABS: AADO2 Arterial 75.6 mmHg (7.0-24.0); Allen Test ACCEPTAB; Arterial Base Excess -0.8 mmol/L (-3.0-3); Arterial Blood Gas Oxygen Sat 97.1 mmHG (95.0-100.0); Arterial COHb 0 % (0.0-3.0); Arterial Fraction of Oxyhgb 96.9 % (93.0-99.0); Arterial HCO3 23.8 mmol/L (22.0-26.0); Arterial MetHb 0.2 % (0.0-1.5); Arterial Total Hemglobin 9.4 g/dl (12.0-18.0); Arterial pCO2 38.6 mmhg (35-45); MODE VENT - AC; Site Right Radial
[2018-04-18] MEDS: CASPOFUNGIN 50 MG in SOD CHLORIDE 0.9% 250 ML IVPB (17:19)
[2018-04-18] MEDS ORDERED: HEPARIN 5,000 UNIT/0.5 ML VIAL (21:13)
[2018-04-18] MEDS: DOXAZOSIN 4 MG TAB GTB (21:22)
[2018-04-18] MEDS: HEPARIN 5,000 UNIT/1 ML VIAL SC (21:29)
[2018-04-19] MEDS: ALBUTEROL HFA 8 GM INHALER INH ×6 (01:36→21:01)
[2018-04-19] MEDS: IPRATROPIUM (HFA) 12.9 GM INHALER INH ×6 (01:36→21:01)
[2018-04-19 05:11] LABS: ADD MAN DIFF? NO
[2018-04-19 05:13] LABS: AADO2 Arterial 90.2 mmHg (7.0-24.0); Allen Test ACCEPTAB; Arterial Base Excess -4.9 mmol/L (-3.0-3); Arterial Blood Gas Oxygen Sat 96.4 mmHG (95.0-100.0); Arterial COHb 0.4 % (0.0-3.0); Arterial Fraction of Oxyhgb 95.8 % (93.0-99.0); Arterial HCO3 19.1 mmol/L (22.0-26.0); Arterial MetHb 0.2 % (0.0-1.5); Arterial Total Hemglobin 11.9 g/dl (12.0-18.0); Arterial pCO2 32.2 mmhg (35-45); MODE VENT - AC; Site Right Radial
[2018-04-19 05:15] LABS: WHITE BLOOD COUNT 12.2 10^3/ul (4.8-10.8)
[2018-04-19 05:15] LABS: BASOPHILS % 0.3 % (0.0-2.0); EOSINOPHILS # 1.7 10^3/ul (0.0-0.5); EOSINOPHILS % 13.5 % (0.0-7.0); HEMATOCRIT 27.1 % (37.0-47.0); HEMOGLOBIN 8.6 g/dl (12.0-16.0); LYMPHOCYTES # 2.8 10^3/ul (0.8-2.9); LYMPHOCYTES % 22.9 % (15.0-51.0); MEAN CORPUSCULAR HEMOGLOBIN 28.9 pg (29.0-33.0); MEAN CORPUSCULAR HGB CONC 31.7 g/dl (32.0-37.0); MEAN CORPUSCULAR VOLUME 90.9 fl (82.0-101.0); MEAN PLATELET VOLUME 9.6 fl (7.4-10.4); MONOCYTE # 1.2 10^3/ul (0.3-0.9); MONOCYTES % 9.7 % (0.0-11.0); NEUTROPHIL # 6.3 10^3/ul (1.6-7.5); NEUTROPHILS % 51.6 % (39.0-77.0); NUCLEATED RED BLOOD CELLS% 0.3 /100WBC (0.0-0.0); PLATELET COUNT 318 10^3/UL (140-415); RED BLOOD COUNT 2.98 10^6/ul (4.20-5.40); RED CELL DISTRIBUTION WIDTH 18.6 % (11.5-14.5)
[2018-04-19 05:23] LABS: LACTIC ACID 1.3 mmol/L (0.5-2.0)
[2018-04-19] MEDS: INSULIN ASPART [NOVOLOG] 3 ML PEN SC ×8 (06:00→23:51)
[2018-04-19] MEDS: PANTOPRAZOLE 40 MG INJ IV (06:16)
[2018-04-19] MEDS: VANCOMYCIN HCL 250 MG/5ML POSYG PO ×4 (06:16→23:42)
[2018-04-19] MEDS: NPH, HUMAN INSULIN ISOPHANE 3ML VIAL SC ×3 (06:22→21:36)
[2018-04-19 06:33] LABS: ANION GAP 15 (5-13)
[2018-04-19 06:45] LABS: BLOOD UREA NITROGEN 25 mg/dl (7-20); CARBON DIOXIDE 21 mmol/L (21-31); CHLORIDE 101 mmol/L (97-110); CREATININE 2.62 mg/dl (0.44-1.00); GLUCOSE 98 mg/dl (70-220); POTASSIUM 3.7 mmol/L (3.5-5.1); SODIUM 137 mmol/L (135-144)
[2018-04-19] MEDS ORDERED: HEPARIN 5,000 UNIT/0.5 ML VIAL ×2 (08:31→20:53)
[2018-04-19] MEDS: TOBRAMYCIN 0.3% 5 ML OPH BOTH EYES ×4 (08:36→21:23)
[2018-04-19] MEDS: RIFAXIMIN 550 MG TAB PO ×2 (08:37→21:22)
[2018-04-19] MEDS: AMLODIPINE 10 MG TAB GTB (08:37)
[2018-04-19] MEDS: METOPROLOL 25 MG TAB GTB ×2 (08:38→21:23)
[2018-04-19] MEDS: HEPARIN 5,000 UNIT/1 ML VIAL SC ×2 (08:50→21:36)
[2018-04-19] MEDS ORDERED: CHOLESTYRAMINE 4 GM PACKET PO (09:00)
[2018-04-19] MEDS: ACETYLCYSTEINE 600 MG CAP PEG (09:14)
[2018-04-19] MEDS: CHOLESTYRAMINE 4 GM PACKET PO (11:37)
[2018-04-19 12:53] LABS: FREE THYROXINE INDEX (Calc) 3.61 ug/ml (0.65-3.89); T3 UPTAKE 50.2 % (23.5-40.5); T4 (THYROXINE) 7.2 ug/dl (5.5-11.0)
[2018-04-19] MEDS: HEPARIN 1000 UNITS/ML 10 ML INJ CATHETER (16:58)
[2018-04-19] MEDS: CASPOFUNGIN 50 MG in SOD CHLORIDE 0.9% 250 ML IVPB (18:20)
[2018-04-19] MEDS: DOXAZOSIN 4 MG TAB GTB (21:22)
[2018-04-20] MEDS: ALBUTEROL HFA 8 GM INHALER INH ×6 (01:35→20:29)
[2018-04-20] MEDS: IPRATROPIUM (HFA) 12.9 GM INHALER INH ×6 (01:35→20:29)
[2018-04-20 05:03] LABS: AADO2 Arterial 79.9 mmHg (7.0-24.0); Allen Test ACCEPTAB; Arterial Base Excess 0 mmol/L (-3.0-3); Arterial Blood Gas Oxygen Sat 96.5 mmHG (95.0-100.0); Arterial COHb 0.3 % (0.0-3.0); Arterial Fraction of Oxyhgb 95.7 % (93.0-99.0); Arterial HCO3 23.3 mmol/L (22.0-26.0); Arterial MetHb 0.5 % (0.0-1.5); Arterial Total Hemglobin 6.3 g/dl (12.0-18.0); Arterial pCO2 31.1 mmhg (35-45); MODE VENT-AC; Site Right Radial
[2018-04-20 05:06] LABS: ADD MAN DIFF? NO
[2018-04-20 05:13] LABS: BASOPHIL # 0.1 10^3/ul (0.0-0.1); BASOPHILS % 0.4 % (0.0-2.0); EOSINOPHILS # 1.3 10^3/ul (0.0-0.5); EOSINOPHILS % 11.6 % (0.0-7.0); HEMATOCRIT 27.5 % (37.0-47.0); HEMOGLOBIN 8.7 g/dl (12.0-16.0); LYMPHOCYTES # 2.2 10^3/ul (0.8-2.9); MEAN CORPUSCULAR HEMOGLOBIN 28.5 pg (29.0-33.0); MEAN CORPUSCULAR HGB CONC 31.6 g/dl (32.0-37.0); MEAN CORPUSCULAR VOLUME 90.2 fl (82.0-101.0); MEAN PLATELET VOLUME 9.8 fl (7.4-10.4); MONOCYTE # 1.2 10^3/ul (0.3-0.9); MONOCYTES % 10.3 % (0.0-11.0); NEUTROPHIL # 6.2 10^3/ul (1.6-7.5); NEUTROPHILS % 55.5 % (39.0-77.0); NUCLEATED RED BLOOD CELLS% 0.4 /100WBC (0.0-0.0); PLATELET COUNT 291 10^3/UL (140-415); RED BLOOD COUNT 3.05 10^6/ul (4.20-5.40); RED CELL DISTRIBUTION WIDTH 18.2 % (11.5-14.5)
[2018-04-20 05:13] LABS: WHITE BLOOD COUNT 11.2 10^3/ul (4.8-10.8)
[2018-04-20 05:37] LABS: LACTIC ACID 1.3 mmol/L (0.5-2.0)
[2018-04-20 05:39] LABS: ANION GAP 10 (5-13); BLOOD UREA NITROGEN 16 mg/dl (7-20); CALCIUM 9.5 mg/dl (8.4-10.2); CARBON DIOXIDE 27 mmol/L (21-31); CHLORIDE 98 mmol/L (97-110); CREATININE 2.15 mg/dl (0.44-1.00); GLUCOSE 159 mg/dl (70-220); POTASSIUM 3.8 mmol/L (3.5-5.1); SODIUM 135 mmol/L (135-144)
[2018-04-20] MEDS: PANTOPRAZOLE 40 MG INJ IV (05:42)
[2018-04-20] MEDS: VANCOMYCIN HCL 250 MG/5ML POSYG PO ×3 (05:42→17:33)
[2018-04-20] MEDS: NPH, HUMAN INSULIN ISOPHANE 3ML VIAL SC ×3 (05:44→22:45)
[2018-04-20] MEDS: INSULIN ASPART [NOVOLOG] 3 ML PEN SC ×6 (05:45→22:42)
[2018-04-20] MEDS ORDERED: HEPARIN 5,000 UNIT/0.5 ML VIAL ×2 (07:52→21:57)
[2018-04-20] MEDS: METOPROLOL 25 MG TAB GTB ×2 (08:06→22:00)
[2018-04-20] MEDS: AMLODIPINE 10 MG TAB GTB (08:06)
[2018-04-20] MEDS: HEPARIN 5,000 UNIT/1 ML VIAL SC ×2 (08:12→21:59)
[2018-04-20] MEDS: CHOLESTYRAMINE 4 GM PACKET PO (11:14)
[2018-04-20] MEDS: CASPOFUNGIN 50 MG in SOD CHLORIDE 0.9% 250 ML IVPB (15:09)
[2018-04-20] MEDS: EPOETIN 10000 UNITS/1 ML INJ (ESRD) SC (17:35)
[2018-04-20 20:36] LABS: ADD UMIC YES; UR ASCORBIC ACID NEGATIVE (NEGATIVE); UR BACTERIA FEW /HPF (NONE SEEN); UR BILIRUBIN (Dip) 2+ mg/dL (NEGATIVE); UR BLOOD (Dip) 2+ mg/dL (NEGATIVE); UR BUDDING YEAST MODERATE /HPF (NONE SEEN); UR CLARITY CLOUDY (CLEAR); UR COLOR AMBER (YELLOW); UR GLUCOSE (Dip) NEGATIVE (NEGATIVE); UR GRANULAR CAST MODERATE /HPF (NONE SEEN); UR KETONES (Dip) NEGATIVE (NEGATIVE); UR LEUKOCYTE ESTERASE (Dip) 3+ Leu/ul (NEGATIVE); UR MUCUS FEW /HPF (NONE SEEN); UR NITRITE (Dip) NEGATIVE (NEGATIVE); UR RBC 85 /HPF (0-5); UR SPECIFIC GRAVITY (Dip) 1.026 (1.003-1.030); UR SQUAMOUS EPITHELIAL CELL FEW /HPF (FEW); UR TOTAL PROTEIN (Dip) 2+ mg/dl (NEGATIVE); UR UROBILINOGEN (Dip) NEGATIVE (NEGATIVE); UR WBC > 182 /HPF (0-5)
[2018-04-20] MEDS: DOXAZOSIN 4 MG TAB GTB (22:00)
[2018-04-21] MEDS: IPRATROPIUM (HFA) 12.9 GM INHALER INH ×6 (01:34→17:07)
[2018-04-21] MEDS: ALBUTEROL HFA 8 GM INHALER INH ×6 (01:34→17:08)
[2018-04-21 05:32] LABS: ANION GAP 11 (5-13); BLOOD UREA NITROGEN 27 mg/dl (7-20); CALCIUM 10.2 mg/dl (8.4-10.2); CARBON DIOXIDE 26 mmol/L (21-31); CHLORIDE 98 mmol/L (97-110); CREATININE 3.31 mg/dl (0.44-1.00); GLUCOSE 260 mg/dl (70-220); PHOSPHORUS 3.1 mg/dl (2.5-4.9); POTASSIUM 3.6 mmol/L (3.5-5.1); SODIUM 135 mmol/L (135-144)
[2018-04-21] MEDS: VANCOMYCIN HCL 250 MG/5ML POSYG PO ×4 (05:48→17:38)
[2018-04-21] MEDS: PANTOPRAZOLE 40 MG INJ IV (05:48)
[2018-04-21] MEDS: NPH, HUMAN INSULIN ISOPHANE 3ML VIAL SC ×3 (06:02→22:18)
[2018-04-21] MEDS: INSULIN ASPART [NOVOLOG] 3 ML PEN SC ×3 (06:04→17:34)
[2018-04-21] MEDS ORDERED: HEPARIN 5,000 UNIT/0.5 ML VIAL ×2 (08:48→22:01)
[2018-04-21] MEDS: AMLODIPINE 10 MG TAB GTB (08:56)
[2018-04-21] MEDS: METOPROLOL 25 MG TAB GTB ×2 (08:56→22:00)
[2018-04-21] MEDS: HEPARIN 5,000 UNIT/1 ML VIAL SC ×2 (09:03→21:59)
[2018-04-21] MEDS: HEPARIN 1000 UNITS/ML 10 ML INJ CATHETER (13:30)
[2018-04-21] MEDS: CHOLESTYRAMINE 4 GM PACKET PO (13:39)
[2018-04-21] MEDS ORDERED: DEXTROSE 50% 50 ML SYRINGE IV ×2 (14:00)
[2018-04-21] MEDS ORDERED: GLUCOSE GEL 15 GRAM TUBE BUCCAL (14:00)
[2018-04-21] MEDS ORDERED: GLUCAGON 1 MG INJ IM (14:00)
[2018-04-21] MEDS ORDERED: GLUCOSE GEL 15 GRAM TUBE PO ×2 (14:00)
[2018-04-21] MEDS: ACETAMINOPHEN 650MG/20.3ML CUP GTB (16:29)
[2018-04-21] MEDS: CASPOFUNGIN 50 MG in SOD CHLORIDE 0.9% 250 ML IVPB (16:29)
[2018-04-21] MEDS: DOXAZOSIN 4 MG TAB GTB (21:59)
[2018-04-22] MEDS: VANCOMYCIN HCL 250 MG/5ML POSYG PO ×4 (00:43→17:32)
[2018-04-22] MEDS: ALBUTEROL HFA 8 GM INHALER INH ×6 (01:00→20:17)
[2018-04-22] MEDS: IPRATROPIUM (HFA) 12.9 GM INHALER INH ×6 (01:00→20:17)
[2018-04-22] MEDS: PANTOPRAZOLE 40 MG INJ IV (06:34)
[2018-04-22] MEDS: NPH, HUMAN INSULIN ISOPHANE 3ML VIAL SC ×3 (06:40→21:58)
[2018-04-22] MEDS: INSULIN ASPART [NOVOLOG] 3 ML PEN SC ×4 (06:41→17:45)
[2018-04-22] MEDS: HEPARIN 5,000 UNIT/1 ML VIAL SC ×2 (09:00→20:23)
[2018-04-22] MEDS: AMLODIPINE 10 MG TAB GTB (10:14)
[2018-04-22] MEDS: METOPROLOL 25 MG TAB GTB ×2 (10:14→20:21)
[2018-04-22] MEDS: CASPOFUNGIN 50 MG in SOD CHLORIDE 0.9% 250 ML IVPB (16:47)
[2018-04-22] MEDS ORDERED: SEVOFLURANE 15 MIN (17:00)
[2018-04-22] MEDS: EPOETIN 10000 UNITS/1 ML INJ (ESRD) SC (17:34)
[2018-04-22] MEDS ORDERED: FENTAnyl 50 MCG/ML VIAL ×2 (17:47→18:56)
[2018-04-22] MEDS: LIDOCAINE 1%/EPI 30 ML INJ (18:31)
[2018-04-22] MEDS ORDERED: MIDAZOLAM 1 MG/ML 2 ML INJ (19:10)
[2018-04-22] MEDS ORDERED: CEFAZOLIN 1 GM INJ (19:11)
[2018-04-22] MEDS ORDERED: ROCURONIUM 50 MG INJ (19:11)
[2018-04-22] MEDS: DOXAZOSIN 4 MG TAB GTB (20:20)
[2018-04-23] MEDS: INSULIN ASPART [NOVOLOG] 3 ML PEN SC ×4 (00:20→17:46)
[2018-04-23] MEDS: VANCOMYCIN HCL 250 MG/5ML POSYG PO ×4 (00:33→17:37)
[2018-04-23] MEDS: IPRATROPIUM (HFA) 12.9 GM INHALER INH ×6 (00:48→21:37)
[2018-04-23] MEDS: ALBUTEROL HFA 8 GM INHALER INH ×6 (00:48→21:37)
[2018-04-23 04:47] LABS: ADD MAN DIFF? NO
[2018-04-23 04:56] LABS: BASOPHIL # 0.1 10^3/ul (0.0-0.1); BASOPHILS % 0.5 % (0.0-2.0); EOSINOPHILS # 0.5 10^3/ul (0.0-0.5); EOSINOPHILS % 3.7 % (0.0-7.0); HEMOGLOBIN 8.9 g/dl (12.0-16.0); LYMPHOCYTES # 1.1 10^3/ul (0.8-2.9); LYMPHOCYTES % 8.5 % (15.0-51.0); MEAN CORPUSCULAR HEMOGLOBIN 28.6 pg (29.0-33.0); MEAN CORPUSCULAR HGB CONC 30.7 g/dl (32.0-37.0); MEAN CORPUSCULAR VOLUME 93.2 fl (82.0-101.0); MEAN PLATELET VOLUME 9.9 fl (7.4-10.4); MONOCYTE # 0.8 10^3/ul (0.3-0.9); MONOCYTES % 5.9 % (0.0-11.0); NEUTROPHIL # 10.5 10^3/ul (1.6-7.5); NEUTROPHILS % 80.1 % (39.0-77.0); NUCLEATED RED BLOOD CELLS # 0.1 10^3/ul (0.0-0.0); NUCLEATED RED BLOOD CELLS% 0.6 /100WBC (0.0-0.0); PLATELET COUNT 280 10^3/UL (140-415); RED BLOOD COUNT 3.11 10^6/ul (4.20-5.40); RED CELL DISTRIBUTION WIDTH 19.1 % (11.5-14.5)
[2018-04-23 04:56] LABS: WHITE BLOOD COUNT 13.2 10^3/ul (4.8-10.8)
[2018-04-23 05:21] LABS: ALANINE AMINOTRANSFERASE 28 IU/L (13-69); ALBUMIN 3.4 g/dl (3.3-4.9); ALBUMIN/GLOBULIN RATIO 1.25; ALKALINE PHOSPHATASE 66 IU/L (42-121); ANION GAP 14 (5-13); ASPARTATE AMINO TRANSFERASE 35 IU/L (15-46); BILIRUBIN,INDIRECT 0.2 mg/dl (0-1.1); BILIRUBIN,TOTAL 0.2 mg/dl (0.2-1.3); BLOOD UREA NITROGEN 26 mg/dl (7-20); CALCIUM 10.7 mg/dl (8.4-10.2); CARBON DIOXIDE 27 mmol/L (21-31); CHLORIDE 98 mmol/L (97-110); CREATININE 3.65 mg/dl (0.44-1.00); GLUCOSE 218 mg/dl (70-220); POTASSIUM 3.8 mmol/L (3.5-5.1); SODIUM 139 mmol/L (135-144); TOTAL PROTEIN 6.1 g/dl (6.1-8.1)
[2018-04-23 05:22] LABS: PHOSPHORUS 3.8 mg/dl (2.5-4.9)
[2018-04-23 05:22] LABS: MAGNESIUM 2.2 mg/dl (1.7-2.5)
[2018-04-23] MEDS: PANTOPRAZOLE 40 MG INJ IV (06:32)
[2018-04-23] MEDS: NPH, HUMAN INSULIN ISOPHANE 3ML VIAL SC ×3 (06:36→21:57)
[2018-04-23] MEDS: METOPROLOL 25 MG TAB GTB ×3 (09:00→21:53)
[2018-04-23] MEDS: AMLODIPINE 10 MG TAB GTB (09:00)
[2018-04-23] MEDS: HEPARIN 1000 UNITS/ML 10 ML INJ CATHETER (10:17)
[2018-04-23] MEDS ORDERED: HEPARIN 5,000 UNIT/0.5 ML VIAL ×2 (10:56→20:59)
[2018-04-23] MEDS: HEPARIN 5,000 UNIT/1 ML VIAL SC ×2 (11:25→21:55)
[2018-04-23] MEDS: CASPOFUNGIN 50 MG in SOD CHLORIDE 0.9% 250 ML IVPB (16:17)
[2018-04-23] MEDS: ACETAMINOPHEN 650MG/20.3ML CUP GTB (16:42)
[2018-04-23] MEDS: DOXAZOSIN 4 MG TAB GTB (21:54)
[2018-04-24] MEDS ORDERED: LANSOPRAZOLE 30 MG CAP GTB (06:00)
== END 2018-04-23 23:05 | DRG 4 ==
LOC: ICU 20:25
PROVIDERS: Internal Medicine
PROC: 0B110F4 Bypass Trachea to Cutaneous with Tracheostomy Device, Open Approach (ICD-10-PCS; 2018-04-22 17:00)
PROC: 5A1D70Z Performance of Urinary Filtration, Intermittent, Less than 6 Hours Per Day (ICD-10-PCS; principal; 2018-04-22 17:42)
PROC: 5A1955Z Respiratory Ventilation, Greater than 96 Consecutive Hours (ICD-10-PCS; 2018-04-22 17:42)
PROC: 5A1D70Z Performance of Urinary Filtration, Intermittent, Less than 6 Hours Per Day (ICD-10-PCS; 2018-04-22 17:42)
PROC: 5A1D70Z Performance of Urinary Filtration, Intermittent, Less than 6 Hours Per Day (ICD-10-PCS; 2018-04-22 17:42)
PROC: 5A1D70Z Performance of Urinary Filtration, Intermittent, Less than 6 Hours Per Day (ICD-10-PCS; 2018-04-22 17:42)
PROC: 5A1D70Z Performance of Urinary Filtration, Intermittent, Less than 6 Hours Per Day (ICD-10-PCS; 2018-04-22 17:42)
PROC: 5A1D70Z Performance of Urinary Filtration, Intermittent, Less than 6 Hours Per Day (ICD-10-PCS; 2018-04-22 17:42)
PROC: 5A1D70Z Performance of Urinary Filtration, Intermittent, Less than 6 Hours Per Day (ICD-10-PCS; 2018-04-22 17:42)
PROC: 30233N1 Transfusion of Nonautologous Red Blood Cells into Peripheral Vein, Percutaneous Approach (ICD-10-PCS; 2018-04-22 17:42)
DX: J96.01 Acute respiratory failure with hypoxia (principal); I50.33 Acute on chronic diastolic (congestive) heart failure; G92 Toxic encephalopathy; J18.9 Pneumonia, unspecified organism; N17.9 Acute kidney failure, unspecified; B37.49 Other urogenital candidiasis; A04.72 Enterocolitis due to Clostridium difficile, not specified as recurrent; Z99.11 Dependence on respirator [ventilator] status; I13.0 Hypertensive heart and chronic kidney disease with heart failure and stage 1 through stage 4 chronic kidney disease, or unspecified chronic kidney disease; I11.0 Hypertensive heart disease with heart failure; E11.22 Type 2 diabetes mellitus with diabetic chronic kidney disease; E11.42 Type 2 diabetes mellitus with diabetic polyneuropathy; D64.9 Anemia, unspecified; I25.10 Atherosclerotic heart disease of native coronary artery without angina pectoris; H10.9 Unspecified conjunctivitis; F09 Unspecified mental disorder due to known physiological condition; K80.20 Calculus of gallbladder without cholecystitis without obstruction; I44.0 Atrioventricular block, first degree; N18.9 Chronic kidney disease, unspecified; Z99.3 Dependence on wheelchair; Z79.4 Long term (current) use of insulin; Z85.3 Personal history of malignant neoplasm of breast
CPT/HCPCS: 36430; 36600; 71045; 76700; 76775; 80048; 80053; 81001; 81003; 82570; 82803; 82962; 83036; 83605; 83735; 84100; 84132; 84436; 84443; 84479; 85025; 85610; 85730; 86706; 86708; 86803; 86850; 86900; 86901; 86920; 87040; 87070; 87075; 87081; 87086; 87340; 89220; 90935; 93005; 93306; 94002; 94003; 94640; 94770; 97163

== ENCOUNTER 2018-05-02 09:17 | Day surgery (SDC) | payer OTHER ==
[2018-05-02] MEDS ORDERED: CEFAZOLIN 1 GM INJ (17:13)
[2018-05-02] MEDS ORDERED: EPHEDrine SULFATE 50 MG/5 ML SYG (17:13)
[2018-05-02] MEDS: HEPARIN 1000 UNITS/ML 10 ML INJ (17:24)
[2018-05-02] MEDS: IOHEXOL 300MG/ML 30 ML BTL (17:25)
[2018-05-02] MEDS ORDERED: LIDOCAINE 1% (STERILE-PAK) 30 ML INJ (17:29)
== END 2018-05-02 19:05 | disposition other institution (70) ==
LOC: SDS 09:17
DX: I12.0 Hypertensive chronic kidney disease with stage 5 chronic kidney disease or end stage renal disease (principal); N18.6 End stage renal disease; E11.9 Type 2 diabetes mellitus without complications; I25.10 Atherosclerotic heart disease of native coronary artery without angina pectoris; E78.5 Hyperlipidemia, unspecified; J96.10 Chronic respiratory failure, unspecified whether with hypoxia or hypercapnia; Z93.0 Tracheostomy status
CPT/HCPCS: 36558; 94002

== ENCOUNTER 2018-05-28 19:46 | Inpatient (IN) | payer MEDICARE, OTHER ==
[~2018-05-28 19:46] MED LIST: EPINEPHrine 0.1 MG/ML SYG; NA BICARBONATE 8.4% 50 ML SYG
[2018-05-28] MEDS ORDERED: GLUCOSE GEL 15 GRAM TUBE PO ×2 (20:00)
[2018-05-28] MEDS ORDERED: hydrALAzine 20 MG INJ IV (20:00)
[2018-05-28] MEDS ORDERED: GLUCOSE GEL 15 GRAM TUBE BUCCAL (20:00)
[2018-05-28] MEDS ORDERED: ALBUMIN HUMAN 25% 100 ML IV (20:00)
[2018-05-28] MEDS ORDERED: DEXTROSE 50% 50 ML SYRINGE IV ×2 (20:00→23:30)
[2018-05-28] MEDS ORDERED: GENTAMICIN IV PER PHARMACY XX (20:00)
[2018-05-28] MEDS ORDERED: GENTAMICIN 80 MG/NS (PMX) 50 ML IVPB (20:00)
[2018-05-28] MEDS ORDERED: GLUCAGON 1 MG INJ IM (20:00)
[2018-05-28] MEDS ORDERED: ACETAMINOPHEN 650MG/20.3ML CUP GTB (20:00)
[2018-05-28] MEDS ORDERED: BALSAM PERU/CASTOR OIL 60 GM TUBE TOP (21:30)
[2018-05-28] MEDS ORDERED: NPH, HUMAN INSULIN ISOPHANE 3ML VIAL SC (22:00)
[2018-05-28] MEDS ORDERED: MICONAZOLE 2% 30 GM CR TOP (22:00)
[2018-05-28] MEDS ORDERED: ONDANSETRON 4 MG INJ IV (22:00)
[2018-05-28] MEDS ORDERED: NA PHOSPHATE/BIPHOS 133 ML ENEMA PR (22:00)
[2018-05-28] MEDS: ACETYLCYSTEINE 20% 4 ML VIAL NEB (22:27)
[2018-05-28] MEDS: NORepinephrine 8MG/250 ML (PMX 250 ML IV (22:29)
[2018-05-28] MEDS: HEPARIN 5,000 UNIT/1 ML VIAL SC (22:59)
[2018-05-28] MEDS ORDERED: VANCOMYCIN IV PER PHARMACY XX (23:15)
[2018-05-28 23:22] LABS: AADO2 Arterial 62.5 mmHg (7.0-24.0); Allen Test ACCEPTAB; Arterial Base Excess -21.1 mmol/L (-3.0-3); Arterial Blood Gas Oxygen Sat 97.9 mmHG (95.0-100.0); Arterial COHb 0.7 % (0.0-3.0); Arterial Fraction of Oxyhgb 96.8 % (93.0-99.0); Arterial HCO3 5.8 mmol/L (22.0-26.0); Arterial MetHb 0.4 % (0.0-1.5); Arterial pCO2 17.1 mmhg (35-45); Blood Gas Low PEEP Setting 0 cmH2O; MODE VENT - AC; Site Left Radial
[2018-05-28] MEDS ORDERED: INSULIN HUMAN REGULAR 100 UNIT in SOD CHLORIDE 0.9% 99 ML IV (23:30)
[2018-05-28] MEDS: ACCU-CHEK XX (23:30)
[2018-05-29] MEDS: DEXTROSE 50% 50 ML SYRINGE IV ×2 (00:01→02:18)
[2018-05-29] MEDS: ACCU-CHEK XX ×16 (00:43→14:22)
[2018-05-29] MEDS: BALSAM PERU/CASTOR OIL 60 GM TUBE TOP ×4 (00:52→11:39)
[2018-05-29] MEDS: ALBUTEROL/IPRATROPIUM (NEB) 3 ML AMP HHN ×2 (01:56→08:25)
[2018-05-29] MEDS: SODIUM CHLORIDE 23.4% 77 MEQ in DEXTROSE 10% 1,000 ML IV (03:04)
[2018-05-29 05:22] LABS: ADD MAN DIFF? NO
[2018-05-29] MEDS: NORepinephrine 8MG/250 ML (PMX 250 ML IV ×2 (05:34→11:37)
[2018-05-29 05:40] LABS: ABNORMAL IP MESSAGE 1; BASOPHIL # 0.1 10^3/ul (0.0-0.1); BASOPHILS % 0.3 % (0.0-2.0); HEMATOCRIT 27.9 % (37.0-47.0); HEMOGLOBIN 7.1 g/dl (12.0-16.0); LYMPHOCYTES % 8.8 % (15.0-51.0); MEAN CORPUSCULAR HEMOGLOBIN 26.4 pg (29.0-33.0); MEAN CORPUSCULAR HGB CONC 25.4 g/dl (32.0-37.0); MEAN CORPUSCULAR VOLUME 103.7 fl (82.0-101.0); MEAN PLATELET VOLUME 10.8 fl (7.4-10.4); MONOCYTE # 1.8 10^3/ul (0.3-0.9); MONOCYTES % 8.3 % (0.0-11.0); NEUTROPHIL # 17.2 10^3/ul (1.6-7.5); NEUTROPHILS % 77.8 % (39.0-77.0); NUCLEATED RED BLOOD CELLS # 0.5 10^3/ul (0.0-0.0); NUCLEATED RED BLOOD CELLS% 2.4 /100WBC (0.0-0.0); PLATELET COUNT 372 10^3/UL (140-415); RED BLOOD COUNT 2.69 10^6/ul (4.20-5.40); RED CELL DISTRIBUTION WIDTH 18.6 % (11.5-14.5)
[2018-05-29 05:40] LABS: WHITE BLOOD COUNT 22.1 10^3/ul (4.8-10.8)
[2018-05-29 05:41] LABS: POSITIVE DIFF @See below
[2018-05-29 06:11] LABS: VANCOMYCIN,RANDOM 13.3 ug/ml
[2018-05-29 06:16] LABS: LACTIC ACID 16.9 mmol/L (0.5-2.0)
[2018-05-29] MEDS: LANSOPRAZOLE 30 MG CAP GTB (06:52)
[2018-05-29] MEDS: VANCOMYCIN 1 GM 250 ML IVPB (07:32)
[2018-05-29] MEDS ORDERED: INSULIN ASPART [NOVOLOG] 3 ML PEN SC (07:35)
[2018-05-29 08:19] LABS: AADO2 Arterial 81.2 mmHg (7.0-24.0); Allen Test ACCEPTAB; Arterial Base Excess -26.4 mmol/L (-3.0-3); Arterial pCO2 24.6 mmhg (35-45); MODE VENT - AC; Site Right Radial
[2018-05-29] MEDS: ACETYLCYSTEINE 20% 4 ML VIAL NEB (08:25)
[2018-05-29] MEDS ORDERED: LIDOCAINE 1% (MPF) 5 ML VIAL SC (08:30)
[2018-05-29] MEDS: SEVELAMER CARBONATE 0.8 GM PKT GTB ×2 (08:36→14:11)
[2018-05-29] MEDS: VORICONAZOLE 200 MG TAB PO (08:36)
[2018-05-29] MEDS: CINACALCET 30 MG TAB PO (08:37)
[2018-05-29] MEDS: HEPARIN 5,000 UNIT/1 ML VIAL SC (08:38)
[2018-05-29] MEDS: MICONAZOLE 2% 30 GM CR TOP (08:39)
[2018-05-29] MEDS: NYSTATIN 30 GM POWDER BTL TOP (08:39)
[2018-05-29] MEDS: SODIUM BICARBONATE (IV ADD) 100 MEQ in DEXTROSE 5% 900 ML IV (08:53)
[2018-05-29] MEDS ORDERED: METOPROLOL 25 MG TAB GTB (09:00)
[2018-05-29 09:19] LABS: ALANINE AMINOTRANSFERASE 102 IU/L (13-69); ALBUMIN 3.2 g/dl (3.3-4.9); ALBUMIN/GLOBULIN RATIO 0.94; ALKALINE PHOSPHATASE 195 IU/L (42-121); ANION GAP 31 (5-13); ASPARTATE AMINO TRANSFERASE 542 IU/L (15-46); BLOOD UREA NITROGEN 84 mg/dl (7-20); CALCIUM 8.6 mg/dl (8.4-10.2); CHLORIDE 101 mmol/L (97-110); GLUCOSE 112 mg/dl (70-220); SODIUM 139 mmol/L (135-144); TOTAL PROTEIN 6.6 g/dl (6.1-8.1)
[2018-05-29 09:26] LABS: CARBON DIOXIDE 7 mmol/L (21-31); POTASSIUM 6.1 mmol/L (3.5-5.1)
[2018-05-29 09:27] LABS: CREATININE 5.62 mg/dl (0.44-1.00)
[2018-05-29 09:29] LABS: MAGNESIUM 3.2 mg/dl (1.7-2.5)
[2018-05-29] MEDS ORDERED: NA BICARBONATE 8.4% 50 ML SYG ×2 (09:34→10:02)
[2018-05-29 09:59] LABS: PHOSPHORUS 17.8 mg/dl (2.5-4.9)
[2018-05-29] MEDS: LIDOCAINE 1% (MPF) 5 ML VIAL SC (10:00)
[2018-05-29] MEDS: SODIUM BICARBONATE (IV ADD) 150 MEQ in DEXTROSE 5% 850 ML IV (11:38)
[2018-05-29] MEDS: NA BICARBONATE 8.4% 50 ML SYG IV ×2 (11:38→14:12)
[2018-05-29] MEDS: CEFEPIME 1GM/50 ML IVPB (11:46)
[2018-05-29] MEDS ORDERED: CEFEPIME 2GM/50 ML (PMX) 50 ML IVPB (14:00)
[2018-05-29] MEDS ORDERED: AZTREONAM 2 GM in SOD CHLORIDE 0.9% 100 ML IVPB (14:00)
[2018-05-29 15:06] LABS: AADO2 Arterial 60.2 mmHg (7.0-24.0); Allen Test ACCEPTAB; Arterial Base Excess -28.5 mmol/L (-3.0-3); Arterial Blood Gas Oxygen Sat 96.2 mmHG (95.0-100.0); Arterial COHb 0.2 % (0.0-3.0); Arterial Fraction of Oxyhgb 95.6 % (93.0-99.0); Arterial HCO3 3.3 mmol/L (22.0-26.0); Arterial MetHb 0.4 % (0.0-1.5); Arterial pCO2 20.1 mmhg (35-45); MODE VENT - AC; Site Right Radial
[2018-05-29] MEDS ORDERED: EPOETIN 10000 UNITS/1 ML INJ (ESRD) SC (17:00)
== END 2018-05-29 15:06 | disposition expired | DRG 871 ==
LOC: ICU 19:46
PROVIDERS: Internal Medicine
PROC: 5A1935Z Respiratory Ventilation, Less than 24 Consecutive Hours (ICD-10-PCS; principal; 2018-05-28)
PROC: 02HV33Z Insertion of Infusion Device into Superior Vena Cava, Percutaneous Approach (ICD-10-PCS; 2018-05-29)
DX: A41.1 Sepsis due to other specified staphylococcus (principal); R65.21 Severe sepsis with septic shock; G92 Toxic encephalopathy; N18.6 End stage renal disease; J96.10 Chronic respiratory failure, unspecified whether with hypoxia or hypercapnia; I13.2 Hypertensive heart and chronic kidney disease with heart failure and with stage 5 chronic kidney disease, or end stage renal disease; I50.32 Chronic diastolic (congestive) heart failure; Z93.0 Tracheostomy status; I44.0 Atrioventricular block, first degree; E83.52 Hypercalcemia; E11.9 Type 2 diabetes mellitus without complications; D63.1 Anemia in chronic kidney disease; R13.10 Dysphagia, unspecified; Z99.2 Dependence on renal dialysis
CPT/HCPCS: 36569; 36600; 71045; 76937; 80053; 80202; 82803; 82962; 83605; 83735; 84100; 85025; 94002; 94003; 94640; 94664